=== PATIENT | female | born 1940 | race Caucasian/White ===

== ENCOUNTER 2021-09-01 23:36 | Emergency (ER) | payer OTHER ==
[2021-09-02 00:21] LABS: BASOPHIL 0.2 % (0-2); EOSINOPHIL 0.4 % (0-7); HCT 37.8 % (37.0-47.0); HGB 12.5 g/dl (12.5-16.0); LYMPHOCYTE 4.5 % (15-48); MCH 29.3 pg (25.0-31.0); MCHC 33.1 g/dL (32.0-36.0); MCV 88.7 fL (78.0-100.0); MONOCYTE 3.9 % (0-12); MPV 11.1 fL (6.0-9.5); NRBC 0; PLT 130 K/uL (150-400); RBC 4.26 M/uL (4.20-5.40); RDW 12.6 % (11.5-14.0); WBC 9.1 K/uL (4.0-10.5)
[2021-09-02 00:33] LABS: NEUTROPHIL 90.8 % (41-80)
[2021-09-02 00:40] LABS: INR 1.15 (0.9-1.2); PROTHROMBIN TIME 14.1 SECONDS (11.8-13.4); PTT 33.6 SECONDS (24.4-34.7)
[2021-09-02 00:51] LABS: CREATININE 1.56 mg/dL (0.51-0.95); POTASSIUM 3.8 mmol/L (3.5-5.1)
[2021-09-02 00:52] LABS: ALBUMIN 2.9 g/dL (3.4-5.0); BILIRUBIN - TOTAL 0.5 mg/dL (0.2-1.0); GLOBULIN (CALCULATION) 3.1 g/dL
[2021-09-02 00:52] LABS: CORONAVIRUS 2019 SARS-COV-2 NEGATIVE (NEGATIVE); INFLUENZA A NAA NEGATIVE (NEGATIVE)
[2021-09-02 01:13] LABS: MAGNESIUM 1.5 mg/dL (1.8-2.4)
[2021-09-02 01:13] LABS: BILIRUBIN NEGATIVE (NEGATIVE); BLOOD 2+ Ery/uL (NEGATIVE); CLARITY CLEAR (CLEAR); COLOR YELLOW (YELLOW); GLUCOSE (U) NORMAL (NORMAL); LEUKOCYTES TRACE Leu/uL (NEGATIVE); NITRITE NEGATIVE (NEGATIVE); PROTEIN 1+ mg/dL (NEGATIVE); UROBILINOGEN 0.2 mg/dL (0.2-1.0)
[2021-09-02 01:14] LABS: C-REACTIVE PROTEIN 12.5 mg/dL (<=0.90)
[2021-09-02 01:20] LABS: BACTERIA 1+
[2021-09-02 01:22] LABS: LACTIC ACID 2.4 mmol/L (0.4-1.9)
[2021-09-02 01:24] LABS: AMORPHOUS URATES CRYSTALS MODERATE
[2021-09-02] MEDS ORDERED: LEVAQUIN250 MG PO (03:57)
== END 2021-09-02 04:27 | disposition home or self-care (01) ==
LOC: FER 23:36
PROVIDERS: Emergency Medicine
DX: N39.0 Urinary tract infection, site not specified (principal); G92.9 Unspecified toxic encephalopathy; I10 Essential (primary) hypertension; J44.9 Chronic obstructive pulmonary disease, unspecified; Z20.822 Contact with and (suspected) exposure to COVID-19; Z99.81 Dependence on supplemental oxygen
CPT/HCPCS: 36415; 36600; 71250; 80053; 81001; 82803; 83605; 83615; 83690; 83735; 83880; 84145; 84484; 85025; 85610; 85730; 86140; 93005; J0692; J7030; U0002

== ENCOUNTER 2022-01-17 12:02 | Emergency (ER) | payer OTHER ==
[~2022-01-17 12:02] MED LIST: LEVAQUIN250 MG PO
[2022-01-17 13:46] LABS: BASOPHIL 0.3 % (0-2); EOSINOPHIL 0.2 % (0-7); HCT 40.8 % (37.0-47.0); HGB 13.4 g/dl (12.5-16.0); LYMPHOCYTE 9.9 % (15-48); MCH 29.2 pg (25.0-31.0); MCHC 32.8 g/dL (32.0-36.0); MCV 88.9 fL (78.0-100.0); MONOCYTE 8.5 % (0-12); MPV 10.6 fL (6.0-9.5); NEUTROPHIL 80.8 % (41-80); NRBC 0; PLT 179 K/uL (150-400); RBC 4.59 M/uL (4.20-5.40); RDW 13.8 % (11.5-14.0); WBC 10.1 K/uL (4.0-10.5)
[2022-01-17 14:05] LABS: BUN/CREAT RATIO (CALC) 12.4 RATIO; CREATININE 1.77 mg/dL (0.51-0.95)
== END 2022-01-17 15:55 | disposition home or self-care (01) ==
LOC: FER 12:02
PROVIDERS: Nurse Practitioner Family
DX: S93.402A Sprain of unspecified ligament of left ankle, initial encounter (principal); M25.562 Pain in left knee; I10 Essential (primary) hypertension; E11.9 Type 2 diabetes mellitus without complications; W01.0XXA Fall on same level from slipping, tripping and stumbling without subsequent striking against object, initial encounter; Y92.009 Unspecified place in unspecified non-institutional (private) residence as the place of occurrence of the external cause
CPT/HCPCS: 36415; 73564; 73610; 80048; 85025

== ENCOUNTER 2022-01-18 23:32 | Day surgery (SDCO) | payer OTHER ==
[~2022-01-18] VITALS: Ht 160 cm; Wt 88.0 kg
[2022-01-19 01:22] LABS: BASOPHIL 0.2 % (0-2); EOSINOPHIL 0.5 % (0-7); HCT 38.1 % (37.0-47.0); HGB 12.3 g/dl (12.5-16.0); LYMPHOCYTE 10.7 % (15-48); MCH 29.1 pg (25.0-31.0); MCHC 32.3 g/dL (32.0-36.0); MCV 90.1 fL (78.0-100.0); MONOCYTE 10.8 % (0-12); MPV 11.3 fL (6.0-9.5); NEUTROPHIL 77.4 % (41-80); NRBC 0; PLT 173 K/uL (150-400); RBC 4.23 M/uL (4.20-5.40); WBC 11.4 K/uL (4.0-10.5)
[2022-01-19 01:30] LABS: CORONAVIRUS 2019 SARS-COV-2 NEGATIVE (NEGATIVE); INFLUENZA A NAA NEGATIVE (NEGATIVE)
[2022-01-19 01:30] LABS: BILIRUBIN NEGATIVE (NEGATIVE); BLOOD TRACE-INTACT Ery/uL (NEGATIVE); COLOR YELLOW (YELLOW); GLUCOSE (U) 3+ mg/dL (NORMAL); LEUKOCYTES NEGATIVE Leu/uL (NEGATIVE); NITRITE POSITIVE (NEGATIVE); PROTEIN TRACE (LOW) mg/dL (NEGATIVE); SPECIFIC GRAVITY <=1.005 (1.001-1.030); UROBILINOGEN 0.2 mg/dL (0.2-1.0)
[2022-01-19 01:33] LABS: BUN/CREAT RATIO (CALC) 13.3 RATIO; CREATININE 1.95 mg/dL (0.51-0.95); POTASSIUM 3.8 mmol/L (3.5-5.1)
[2022-01-19 01:54] LABS: CLARITY SLIGHTLY HAZY (CLEAR)
[2022-01-19 02:04] LABS: BACTERIA 4+
[2022-01-19 02:05] LABS: YEAST PRESENT
[2022-01-19] MEDS ORDERED: ASPIRIN EC81 MG PO (10:38)
[2022-01-19] MEDS ORDERED: XANAX0.5 MG PO (10:39)
[2022-01-19] MEDS ORDERED: TRADJENTA5 MG PO (10:41)
[2022-01-19] MEDS ORDERED: NORCO 5/3251 EACH PO (10:41)
[2022-01-19] MEDS ORDERED: LASIX20 MG PO (10:43)
[2022-01-19] MEDS ORDERED: ALLOPURINOL 30300 MG PO (10:45)
[2022-01-19] MEDS ORDERED: FARXIGA5 MG PO (10:46)
[2022-01-19] MEDS ORDERED: ARTHRITIS PAIN150 GM TOP (10:48)
[2022-01-19] MEDS ORDERED: NORVASC2.5 MG PO (10:52)
--- NOTE | 2022-01-19 17:58 | NUR ---
01/19 Ms. Jimenez lives with her daughter, son-in-law and great grand daughter. She has a cane. Will monitor for and needs
[2022-01-20 06:02] LABS: BASOPHIL 0.3 % (0-2); EOSINOPHIL 2.3 % (0-7); HGB 10.4 g/dl (12.5-16.0); LYMPHOCYTE 21.8 % (15-48); MCHC 31.5 g/dL (32.0-36.0); MCV 91.9 fL (78.0-100.0); MONOCYTE 10.8 % (0-12); MPV 10.6 fL (6.0-9.5); NEUTROPHIL 64.4 % (41-80); NRBC 0; PLT 147 K/uL (150-400); RBC 3.59 M/uL (4.20-5.40); RDW 13.6 % (11.5-14.0); WBC 9.8 K/uL (4.0-10.5)
[2022-01-20 06:34] LABS: ALBUMIN 2.3 g/dL (3.4-5.0); BILIRUBIN - TOTAL 0.3 mg/dL (0.2-1.0); CREATININE 2.15 mg/dL (0.51-0.95); GLOBULIN (CALCULATION) 3.4 g/dL; POTASSIUM 3.7 mmol/L (3.5-5.1); TOTAL PROTEIN 5.7 g/dL (6.4-8.2)
--- NOTE | 2022-01-20 15:56 | NUR ---
01/20 A referral was made to [facility] for a rw per patient choice.
--- NOTE | 2022-01-20 19:50 | NUR ---
1950 01/20/22 TALKED TO PATIENTS SAUNDRA,WHO SHE LIVES WITH, KAIA CAIN, DAUGHTER EXPRESSED NEEDS FOR POSSIBLE HOME HEALTH. I TOLD THE DAUGHTER I WOULD PASS HER CONCERNS ON TO DAY SHIFT AND TO D/C PLANNING. HER CELL # IS
[2022-01-21 06:35] LABS: BASOPHIL 0.1 % (0-2); EOSINOPHIL 0 % (0-7); HGB 11.2 g/dl (12.5-16.0); LYMPHOCYTE 7.2 % (15-48); MCH 28.7 pg (25.0-31.0); MCV 89.7 fL (78.0-100.0); MONOCYTE 1.1 % (0-12); NRBC 0; PLT 168 K/uL (150-400); RDW 13.4 % (11.5-14.0); WBC 7.4 K/uL (4.0-10.5)
[2022-01-21 06:37] LABS: NEUTROPHIL 91.2 % (41-80)
[2022-01-21 07:22] LABS: ALBUMIN 2.4 g/dL (3.4-5.0); BILIRUBIN - TOTAL 0.2 mg/dL (0.2-1.0); BUN/CREAT RATIO (CALC) 18.2 RATIO; CREATININE 1.7 mg/dL (0.51-0.95); GLOBULIN (CALCULATION) 3.4 g/dL; POTASSIUM 4.9 mmol/L (3.5-5.1); TOTAL PROTEIN 5.8 g/dL (6.4-8.2)
--- NOTE | 2022-01-21 10:35 | NUR ---
01/21/22 [place] does not have a rolling walker. - Pt was in agreement for a referral to be made to [facility] [place]. [facility] will provide a rw and 02 at 2 L.
[2022-01-21] MEDS ORDERED: ALLOPURINOL100 MG PO (15:32)
[2022-01-21] MEDS ORDERED: PREDNISONE5 MG PO (15:33)
[2022-01-21] MEDS ORDERED: CEFDINIR300 MG PO (15:33)
[2022-01-22] MEDS ORDERED: BACTRIM DS TAB1 EACH PO (13:40)
[2022-01-22] MEDS ORDERED: MACROBID100 MG PO (13:50)
== END 2022-01-21 17:15 | disposition home or self-care (01) ==
LOC: FER 23:32 → FMS 01-19 07:41
PROVIDERS: Internal Medicine; Nurse Practitioner; ADMIT Internal Medicine
DX: N39.0 Urinary tract infection, site not specified (principal); B96.20 Unspecified Escherichia coli [E. coli] as the cause of diseases classified elsewhere; N17.9 Acute kidney failure, unspecified; M10.9 Gout, unspecified; I12.9 Hypertensive chronic kidney disease with stage 1 through stage 4 chronic kidney disease, or unspecified chronic kidney disease; E11.22 Type 2 diabetes mellitus with diabetic chronic kidney disease; N18.4 Chronic kidney disease, stage 4 (severe); J44.9 Chronic obstructive pulmonary disease, unspecified; E03.9 Hypothyroidism, unspecified; Z79.82 Long term (current) use of aspirin; Z79.899 Other long term (current) drug therapy; Z20.822 Contact with and (suspected) exposure to COVID-19
CPT/HCPCS: 36415; 71045; 73522; 73560; 80048; 80053; 81001; 82962; 83880; 84145; 84484; 85025; 87076; 87088; 87186; 93005; 97162; 97166; 97530; 97530-GP; 97535; G0378; J0456; J0696; J1650; J2930; J7030; J7040; J7050; U0002